=== PATIENT | female | born 1970 | race Two or more races ===

== ENCOUNTER 2024-09-23 10:58 | Emergency (ER) | payer OTHER, SELFPAY ==
[2024-09-23 11:06] VITALS: BP 129/84; PULSE 95; RESP 17; TEMP 36.8; O2SAT 97; BMI 36.3
--- NOTE | 2024-09-23 11:08 | XR_ITS ---
Examination: Foot, right, 3 views Technique: AP, oblique, lateral views foot, 3 views Date and time of exam: September 23, 2024 1158 hours INDICATIONS: Right foot pain today FINDINGS: Moderate osteopenia No acute foot fracture No dislocation IMPRESSION: No acute foot fracture
--- NOTE | 2024-09-23 11:08 | XR_ITS ---
EXAMINATION: Ankle, right 3 views . Technique: Ankle AP, oblique, lateral 3 views Date and time of exam: September 23, 2024 1158 hours INDICATIONS: Injury to the ankle today, ankle pain. FINDINGS: Acute fracture fibular tip, 3 mm offset at the fracture site Tibia intact No dislocation IMPRESSION: Acute fracture fibular tip
--- NOTE | 2024-09-23 13:49 | EDNOTE_ITS ---
Lower Extremity Injury RME/HPI General Chief Complaint: Extremity Injury, Lower Stated Complaint: SENT FOR XR R ANKLE Time Seen by Provider: 09/23/24 11:11 Arrival date/time: 09/23/24 10:58 54-year-old female with current open Workmen's Comp. case presents to the emergency department today for x-ray of her right ankle and foot patient was sent by her Workmen's Compensation doctor Limitations: no limitations Related Data Home Medications ?Medication ?Instructions ?Recorded ?Confirmed levothyroxine 75 mcg tablet 75 mcg PO QDAY 01/08/23 09/18/23 Previous Rx's ?Medication ?Instructions ?Recorded hydrocodone 5 mg-acetaminophen 325 1 tab PO Q6H PRN pain #14 tabs 09/19/23 mg tablet ibuprofen 600 mg tablet 600 mg PO Q8H PRN pain #20 tabs 07/28/24 Allergies Allergy/AdvReac Type Severity Reaction Status Date / Time No Known Allergies Allergy Verified 09/23/24 11:00 Review of Systems Review of Systems Systems Reviewed: All systems reviewed, normal except as documented Constitutional Constitutional: Reports system reviewed and no additional complaints, except as documented, Denies fever(s) and Denies headache(s) Eyes Eyes: Reports system reviewed and no additional complaints, except as documented and Denies blurry vision ENT Ears, Nose, Mouth, and Throat: Reports system reviewed and no additional complaints, except as documented, Denies headache(s), Denies nasal congestion and Denies nasal discharge Cardiovascular Cardiovascular: Reports system reviewed and no additional complaints, except as documented, Denies chest pain and Denies dyspnea Respiratory Respiratory: Reports system reviewed and no additional complaints, except as documented, Denies chest congestion, Denies cough and Denies dyspnea Gastrointestinal Gastrointestinal: Reports system reviewed and no additional complaints, except as documented and Denies abdominal pain Musculoskeletal Musculoskeletal: Reports system reviewed and no additional complaints, except as documented, Denies abnormal gait, Reports arthralgias, Denies deformity and Reports joint swelling Integumentary/Breasts Skin/Breast: Reports system reviewed and no additional complaints, except as documented and Denies rash Neurologic Neurologic: Reports system reviewed and no additional complaints, except as documented, Reports as per HPI, Denies abnormal gait and Denies headache(s) Past Medical History Past Medical History NEUROLOGIC: Negative Neurological Disorders CARDIAC: Negative Cardiac Disorders ED Exam General Limitations: Present no limitations General appearance: Present alert and in no apparent distress Head Head exam: Present atraumatic Eye Eye exam: Present normal appearance, PERRL and EOMI ENT ENT exam: Present normal exam, normal oropharynx and mucous membranes moist Neck Neck exam: Present normal inspection, full ROM and trachea midline Chest Chest inspection: Present normal inspection and symmetric chest wall rise Respiratory Respiratory exam: Present normal lung sounds bilaterally Cardiovascular Cardiovascular exam: Present regular rate, normal rhythm and normal heart sounds Abdominal Exam Abdominal exam: Present soft and normal bowel sounds Extremities Exam Extremities exam: Present full ROM, tenderness, normal capillary refill and joint swelling; Absent pedal edema or calf tenderness Back Exam Back exam: Present normal inspection and full ROM Neurological Exam Neurological exam: Present alert, oriented X3 and CN II-XII intact Psychiatric Psychiatric exam: Present normal affect and normal mood Skin Skin exam: Present warm, dry, intact and normal color Course Quality Measures none Orders Category Date Time Status XR ankle comp RT min 3V Stat Exams 09/23/24 11:08 Completed XR foot comp RT min 3V Stat Exams 09/23/24 11:08 Completed Vital Signs Vital signs: Vital Signs Temperature 98.3 F 09/23/24 11:06 Pulse Rate 95 09/23/24 11:06 Respiratory Rate 17 09/23/24 11:06 Blood Pressure 129/84 09/23/24 11:06 Pulse Oximetry (%) 97 09/23/24 11:06 Oxygen Delivery Method Room Air 09/23/24 11:06 O2 saturation 97% room air within normal limits Extremity Injury, Lower MDM Narrative MDM Narrative:: 54-year-old female with current open Workmen's Comp. case presents to the emergency department today for x-ray of her right ankle and foot patient was sent by her Workmen's Compensation doctor On exam patient well-appearing patient does not appear ill or toxic On exam patient has mild swelling to the right lateral malleolus no deformity noted X-rays obtained but patient left prior to final disposition Per the radiologist there is a fracture distal fibula which she mentions is acute I suspect this is not an acute fracture and this is the same fracture that the patient had previously Patient data External records reviewed:: [facility] previous records Clinical information provided by:: patient Social determinants that could affect healthcare access:: none Patient has the following chronic illnesses:: See history How is presenting disease/condition affected by chronic disease/condition?: exacerbated by Evaluation data The following diagnostics were reviewed and interpreted by me:: radiology exam(s) Lab and/or radiology exams considered but not ordered:: Radiology obtained Interpretation Summary: Reviewed by me Medications / Prescriptions Medications or Prescriptions considered but not ordered:: No meds Medication administrations:: No meds Consultations Consultation(s) initiated? (list below): No Diagnosis Extremity Injury, Lower Differential Diagnosis: ankle sprain and strain and ankle fracture Most likely diagnosis given after review of the tests above:: Ankle sprain Admission Indicated Admission indicated?: not indicated Admission Request Was there a request for admission?: No Disposition Plan Disposition Plan: Discharge Discharge Attestation Discharge Attestation: The patient and all family members were given an opportunity to ask questions and understood the discharge instructions. Discharge instructions specifically effects, indications for sooner follow up or return to the emergency department, and the expected course of current diagnosis. Patient condition: Stable Discharge Plan Plan Patient Disposition: Elopement Disposition Comment: Stable Prescriptions/Referrals Prescriptions/Med Rec: No Action levothyroxine 75 mcg Tablet 75 mcg PO QDAY hydrocodone-acetaminophen 5-325 mg tablet 1 tab PO Q6H MDD 4 PRN (Reason: pain) Qty: 14 0RF ibuprofen 600 mg tablet 600 mg PO Q8H PRN (Reason: pain) Qty: 20 0RF Referrals: No Primary/Family,Physician [Primary Care Provider] - In 1 week Problem List Clinical Impression: Ankle pain, right Patient/Caregiver Discharge Instructions Print Language: Lithuanian PA/MANAGER POLICY Supervising Physician PA/MANAGER POLICY Supervising Physician: Dr Noe
== END 2024-09-23 15:22 | disposition left against medical advice (07) ==
PROVIDERS: Emergency Provider Emergency Medicine
DX: S82.401A Unspecified fracture of shaft of right fibula, initial encounter for closed fracture (principal); M79.671 Pain in right foot; X58.XXXA Exposure to other specified factors, initial encounter; Y99.0 Civilian activity done for income or pay
CPT/HCPCS: 73610; 73630; 99281